=== PATIENT | male | born 1985 | race Caucasian/White ===

== ENCOUNTER 2020-08-11 01:02 | Emergency (ER) | payer MEDICARE, MEDICAID, SELFPAY ==
[2020-08-11 01:13] VITALS: BP 155/76; PULSE 107; RESP 20; O2SAT 96; BMI 27.1
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
--- NOTE | 2020-08-11 01:48 | PC.NURSE ---
MAHESH RN AT PT STRETCHER SIDE TO MEDICATE PT. PT JUMPED OUT OF STRETCHER PT WAS HANDED MED CUP BY RN, PT THREW MED CUP DOWN ALVARES SCREAMING ATARAX & CLONIDINE, THIS IS WHAT YOU GIVE ME, YOU CAN SHOVE THAT UP YOUR ASS PT PROCEED TO TAKE LARGE CONTAINER OFF OF COUNTER AND THROW IT DOWN THE ALVARES INTO A PATIENT ROOM. PT THEN ENTERING PATIENTS ROOM SCREAMING, THREATENING STAFF FUCKING COME AT ME, ILL SHOW YOU WHAT I CAN DO. PT CONTINUED TO BE VERBALLY AND PHYSICALLY AGGRESSIVE TOWARD STAFF, PT WAS CREATING AN UNSAFE ENVIRONMENT FOR THE SURROUNDING PTS IN THE ED , ENTERING ROOMS, YELLING THREATENING, THROWING ADDITIONAL EQUIPMENT DOWN THE ALVARES. PT TELLING SECURITY FUCKING ELIAS ME BRO DO IT [employer] WAS CALLED TO ASSIST. PT WAS MEDICALLY CLEARED BY DR. POSEY, AND PROVIDED W/D/C INSTRUCTIONS THAT WERE GIVEN TO [employer] OFFICER. WHILE IN OUR CARE PT DENIES, SI, DENIED HI, DENIED FEELINGS OF WANTING TO HARM HIMSELF OR OTHERS IN ANY WAY.
--- NOTE | 2020-08-11 02:45 | PC.NURSE ---
SGT LEMONS FROM [facility] ARRIVED IN ED TO DEBRIEF W/SECURITY, THIS CHARGE NURSE, AND NURSING SUP. IT WAS DISCUSSED THIS PATIENT DENIED SI/HI, THOUGHTS OF HARMING HIMSELF OR OTHERS. PTS AGGRESSIVE PHYSICAL & VERBAL BEHAVIOR WAS DESCRIBED IN DETAIL WELL THE RISK THE PATIENT CAUSED TO THE PATIENTS AROUND HIM. IT WAS ALSO DISCUSSED THIS PATIENT WAS MEDICALLY CLEARED BY THE MD, AND DISCHARGE PAPERWORK WAS PROVIDED TO [facility] OFFICERS WHO ESCORTED PT OUT OF THE DEPT.
== END 2020-08-11 01:45 ==
PROVIDERS: Emergency Provider Emergency Medicine
DX: F32.9 Major depressive disorder, single episode, unspecified (principal); F41.9 Anxiety disorder, unspecified; R45.6 Violent behavior; R44.1 Visual hallucinations; F11.20 Opioid dependence, uncomplicated; F17.200 Nicotine dependence, unspecified, uncomplicated; Z79.899 Other long term (current) drug therapy
CPT/HCPCS: 99283; 99284

== ENCOUNTER 2023-07-09 11:31 | Outpatient (AMB) | payer MEDICARE, MEDICAID, SELFPAY ==
--- NOTE | 2023-07-09 11:32 | MHC.PC.OV ---
Vital Signs 07/09/23 11:33 Height 6 ft Weight 207 lb BMI 28.1 BP 140/78 H Blood Pressure Location Lt brachial Position Sitting Pulse 80 Pulse Source Pulse Oximeter Pulse Oximetry (%) 100 Oxygen Delivery Method Room Air Intake Visit Reasons: infection around tooth/on off chest pain Community Resource Officer Required: No Front Desk Auxiliary: Not Required per policy Accompanied by: Self / Same As Patient Allergies adhesive tape Allergy (Mild, Verified 07/09/23 11:33) RASH TO MEDICAL TAPE trazodone [TRAZODONE] Allergy (Unknown, Verified 07/09/23 11:33) HIVES Medication List - Last Reconciled 07/10/23 by Joe Deluca MD amoxicillin 500 mg PO BID ibuprofen 600 mg PO Q8H PRN methadone 70 mg PO DAILY Tobacco use date assessed: 07/09/23 Dental Screening Dental Screen Date: 07/09/23 Did you have a dental visit in the last 12 months?: Yes Did you have a dental problem in the last 6 months where you did not have access to dental care?: No Was dental information given to patient?: Patient has dentist HPI infection around tooth/on off chest pain HPI Details has dental abscesses and will be having teeth removed REPLACED BY [facility] Medical History Asthma Migraine headache Surgical History History of foot surgery History of carpal tunnel release Family History Father No problems noted. Mother No problems noted. Brother No problems noted. Social History (Updated 05/06/20 @ 09:09 by NARGIS Lorenzana) Alcohol intake: unknown Years Smoked: three weeks Substance Use Type: Prescription Drugs Current occupational status: employed Cognitive needs: No Hearing needs: No Vision needs: No Questionnaire PHQ-9 Over the last 2 weeks, how often have you been bothered by any of the following problems? 1. Little interest or pleasure in doing things: not at all 2. Feeling down, depressed, or hopeless: not at all 3. Trouble falling or staying asleep, or sleeping too much: not at all 4. Feeling tired or having little energy: not at all 5. Poor appetite or overeating: not at all 6. Feeling bad about yourself - or that you are a failure or have let yourself or your family down: not at all 7. Trouble concentrating on things, such as reading the newspaper or watching television: not at all 8. Moving or speaking so slowly that other people could have noticed. Or the opposite - being so fidgety or restless that you have been moving around a lot more than usual: not at all 9. Thoughts that you would be better off or of hurting yourself in some way: not at all Total score: 0 Source: Developed by Drs. Alex Avila, Kathie Valero, Tommy Pham and colleagues, with an educational tevin from [employer]. Thrive Questionnaire Date Thrive assessed: 07/09/23 I am a: Patient What is your living situation today?: I have a steady place to live Within the past 12 months, did the food you bought not last and you didn't have the money to get more?: Never true Within the past 12 months, did you worry whether your food would run out before you got money to buy more?: Never true Do you have trouble paying for medicines?: No Do you have trouble getting transportation to medical appointments?: No Do you have trouble paying your heating and electricity bill?: No Do you have trouble taking care of your child, family member or friend?: No Do you have trouble with day-to-day activities such as bathing, preparing meals, shopping, managing finances, etc.?: No Are you currently unemployed and looking for a job?: No Are you interested in more education?: No Please select the resources that you would like help with: None THRIVE Score: 0 AUDIT C Alcohol Use Questionnaire (AUDIT-C) 1. How often do you have a drink containing alcohol?: Never Total Score: 0 MICHAEL-7 AMB Questionnaire MICHAEL-7 Date MICHAEL - 7 assessed: 07/09/23 Feeling nervous, anxious, or on edge: 0 = Not at all Not being able to stop or control worryin = Not at all Worrying too much about different things: 0 = Not at all Trouble relaxin = Not at all Being so restless that it is hard to sit still: 0 = Not at all Becoming easily annoyed or irritable: 0 = Not at all Feeling afraid as if something awful might happen: 0 = Not at all Total MICHAEL-7 score (0-4 normal; 5-9 mild; 10-14 moderate; 15-21 severe): 0 Source: Developed by Drs. Alex Avila, Kathie Valero, Tommy Pham and colleagues, with an educational tevin from [employer]. Review of Systems Const Denies chills, Denies headache(s) and Denies weight loss ENT Denies headache(s) Card Denies chest pain, Denies syncope, Denies irregular heart rhythm and Denies dyspnea Resp Denies chest congestion, Denies cough and Denies dyspnea GI Denies abdominal pain, Denies change in stool character, Denies nausea and Denies vomiting Musc Denies deformity and Denies joint swelling Neuro Denies syncope and Denies headache(s) Physical exam (Primary Care) Vital Signs: Last Vital Signs Pulse 80 07/09/23 11:33 BP 140/78 H 07/09/23 11:33 Pulse Ox 100 07/09/23 11:33 Oxygen Delivery Method Room Air 07/09/23 11:33 BMI result Body Mass Index 28.1 Tobacco/Smoking Status: Tobacco use Status Tobacco use date assessed 07/09/23 07/09/23 11:40 PHQ-9: PHQ-9 Score PHQ-9: Total score 0 07/09/23 11:40 Thrive Assessment: Date of Thrive Assessment Date Thrive assessed 07/09/23 07/09/23 11:40 Const General: cooperative, comfortable, no acute distress and alert Neck Neck: Yes no lymphadenopathy Thyroid: Thyroid normal Resp Effort & Inspection: normal respiratory effort Auscultation: clear to auscultation bilaterally Percussion: percussion normal Cardio Jugular venous distension: no JVD Palpation: normal PMI Rate: regular rate Rhythm: regular rhythm Heart sounds: S1 normal heart sound present and S2 normal heart sound present GI Inspection: Yes normal to inspection Palpation (GI): No hepatosplenomegaly present Skin General skin exam: no rashes or lesions noted Extrem General: Yes no clubbing, cyanosis or edema Assessment and Plan Assessment & Plan (1) Dental abscess: Code(s): K04.7 - Periapical abscess without sinus Plan: rx sent Orders: Orders Lipid Panel 07/09/23 E78.5 - Hyperlipidemia, unspecified Complete Blood Count Auto Diff 07/09/23 D64.9 - Anemia, unspecified Comprehensive [place]. Panel Fast 07/09/23 N28.9 - Disorder of kidney and ureter, unspecified Medications: New amoxicillin 500 mg PO BID 30 tabs 0RF ibuprofen 600 mg PO Q8H PRN 30 tabs 0RF pain Coding Level of Care Code Est Pt Level 3 (40780) Diagnoses Dental abscess K04.7
[2023-07-09 11:33] VITALS: BP 140/78; PULSE 80; O2SAT 100; BMI 28.1
== END 2023-07-09 13:24 | disposition home or self-care (01) ==
PROVIDERS: PCP Internal Medicine; Visit Provider Internal Medicine
DX: K04.7 Periapical abscess without sinus (principal)
CPT/HCPCS: 99213

== ENCOUNTER 2023-07-19 09:50 | Outpatient (REF) | payer MEDICARE, MEDICAID, SELFPAY ==
[2023-07-19 10:13] LABS: MANUAL DIFF FLAG NO
[2023-07-19 10:42] LABS: Basophils Percent Auto 0.3 % (0-2); Eosinophils Percent Auto 0.6 % (0-4); Hematocrit 50.8 % (42.0-52.0); Hemoglobin 16.7 g/dl (14.0-18.0); Imm Gran Abs Auto 0.02 X10*3/uL (0.00-0.03); Imm Gran Pct Auto 0.3 % (0.0-0.4); Lymphocytes Absolute Auto 1.7 X10*3/uL (1.2-4.9); Mean Corpuscular HGB Conc 32.9 g/dl (31.0-36.0); Mean Corpuscular Hemoglobin 28.5 pg (27.0-33.0); Mean Corpuscular Volume 86.7 fL (80.0-98.0); Mean Platelet Volume 9.9 fL (9.4-12.4); Monocytes Absolute Auto 0.5 X10*3/uL (0.1-1.2); Monocytes Percent Auto 7.6 % (2-11); Neutrophils Absolute Auto 3.9 x10*3/uL (2.0-8.3); Neutrophils Percent Auto 63.2 % (45-73); Platelet Count 227 X10*3/uL (160-400); Red Blood Count 5.86 X10*6/uL (4.60-5.80); Red Cell Distribution Width 11.9 % (11.0-16.0); White Blood Count 6.2 X10*3/uL (4.8-10.8)
[2023-07-19 11:37] LABS: Alanine Aminotransferase 28 U/L (0-40); Albumin Level 4.7 g/dL (3.5-5.0); Alkaline Phosphatase 60 U/L (39-117); Anion Gap 12 (12-20); Aspartate Amino Transferase 38 U/L (5-37); Bilirubin Total 0.7 mg/dL (0.0-1.0); Blood Urea Nitrogen 23 mg/dL (9-16); Calcium 10.3 mg/dL (8.4-10.2); Carbon Dioxide 25 mmol/L (22-29); Chloride 107 mmol/L (96-108); Cholesterol 155 mg/dL (<200); Estimated Glomerular Filt Rate > 60; Glucose Fasting 90 mg/dL (60-99); HDL Cholesterol 38 mg/dL (>40); LDL Cholesterol Calculated 106 mg/dL (<100); Potassium 4.4 mmol/L (3.3-5.1); Sodium 140 mmol/L (135-145); Total Protein 7.8 g/dL (6.5-8.0); Triglycerides 57 mg/dL (<150)
== END 2023-07-19 09:51 | disposition home or self-care (01) ==
LOC: HO.LAB 09:50
PROVIDERS: PCP Internal Medicine; Visit Provider Internal Medicine
DX: D64.9 Anemia, unspecified (principal); N28.9 Disorder of kidney and ureter, unspecified; E78.5 Hyperlipidemia, unspecified
CPT/HCPCS: 36415; 80053; 80061; 85025